=== PATIENT | female | born 1935 | race Caucasian/White ===

== ENCOUNTER 2019-11-27 10:20 | Emergency (ER) | payer MEDICARE, OTHER ==
[~2019-11-27] VITALS: Ht 147.3 cm; Wt 41.3 kg
--- NOTE | 2019-11-27 10:40 | NUR ---
pt brought in by daughter from MD office for evaluation d/t having anxiety. Pt placed in Bed 1, gowned. Pt in no acute distress, follows commands. Initially refused to be placed in Bed but once daughter came to bedside she agreed to be placed in bed. Pt seen and examined by Dr. Velázquez. Addendum: 11/27/19 at 1344 by ELIZABETH Error pt placed in Bed 2a.
[2019-11-27] MEDS ORDERED: LORAZEPAM 2 MG/1 ML VIAL IV ONE (11:00)
[2019-11-27 11:06] LABS: *BLOOD, URINE NEGATIVE (NEGATIVE); *CLARITY,URINE SLIGHTLY CLOUDY (CLEAR); *COLOR,URINE YELLOW (YELLOW); *KETONES,URINE 1+ (NEGATIVE); *UROBILINOGEN,URINE 0.2 E.U./dl (NORMAL); LEUKOCYTE ESTERASE ,URINE NEGATIVE (NEGATIVE); NITRITE, URINE NEGATIVE (NEGATIVE); UGLUCOSE NEGATIVE (NEGATIVE)
[2019-11-27 11:10] LABS: *BILIRUBIN,URIN 1+ (NEGATIVE)
[2019-11-27] MEDS ORDERED: LORAZEPAM 2 MG/1 ML VIAL ONE (11:11)
[2019-11-27 11:16] LABS: *AMPHETAMINE, URINE NEGATIVE (NEGATIVE); *CANNABINOID, URINE NEGATIVE (NEGATIVE); *COCCAINE, URINE NEGATIVE (NEGATIVE); *OPIATE, URINE NEGATIVE (NEGATIVE); *PHENCYCLIDINE SCREEN,URINE NEGATIVE (NEGATIVE)
[2019-11-27 11:21] LABS: BASOPHILS # (AUTO) 0.1 K/uL (0.0-8.0); BASOPHILS % (AUTO) 0.6 % (0.0-2.0); EOSINOPHILS # (AUTO) 0.1 K/uL (0.0-0.7); EOSINOPHILS % (AUTO) 0.8 % (0.0-7.0); HEMATOCRIT 38.7 % (31.2-41.9); HEMOGLOBIN 12.7 g/dL (10.9-14.3); LYMPHOCYTES # (AUTO) 2.1 K/uL (20.0-40.0); LYMPHOCYTES % (AUTO) 18.8 % (20.5-51.5); MEAN CORPUSCULAR HEMOGLOBIN 28.5 uug (24.7-32.8); MEAN CORPUSCULAR HGB CONC 33 g/dL (32.3-35.6); MEAN CORPUSCULAR VOLUME 86.9 fL (75.5-95.3); MONOCYTES % (AUTO) 9.2 % (0.0-11.0); NEUTROPHILS # (AUTO) 7.9 K/uL (1.8-8.9); NEUTROPHILS % (AUTO) 70.6 % (38.5-71.5); PLATELET COUNT (AUTO) 303 K/uL (179-408); RED BLOOD CELL COUNT(AUTO) 4.46 MIL/uL (3.63-4.92); WHITE BLOOD COUNT (AUTO) 11.1 K/uL (3.8-11.8)
[2019-11-27 11:22] LABS: CARBON DIOXIDE 28 mmol/L (21-32); CHLORIDE 107 mmol/L (98-107); CREATININE 1.1 mg/dL (0.6-1.3); GLUCOSE 116 mg/dL (74-106); POTASSIUM 3.9 mmol/L (3.5-5.1); UREA NITROGEN, BLOOD 29 mg/dL (7-18)
[2019-11-27 11:28] LABS: ALANINE AMINOTRANSFERASE 8 U/L (14-59); ALKALINE PHOSPHATASE 68 U/L (50-136); ASPARTATE AMINOTRANSFERASE 22 U/L (15-37); BILIRUBIN,DIRECT 0.1 mg/dL (0.0-0.2); BILIRUBIN,TOTAL 0.3 mg/dL (0.2-1.0); TOTAL PROTEIN, SERUM 6.6 g/dL (6.4-8.2)
--- NOTE | 2019-11-27 11:31 | NUR ---
pt returned from CT placed back on monitor
[2019-11-27 11:32] LABS: ETHANOL < 3 MG/DL (0-0)
[2019-11-27 11:36] LABS: THYROID STIMULATING HORMONE 0.566 mIU/mL (0.358-3.740)
[2019-11-27] MEDS ORDERED: LOVA20TA2 PO (11:51)
[2019-11-27] MEDS ORDERED: LORA-258 PO (11:51)
[2019-11-27] MEDS ORDERED: AMLO5TAB9 PO (11:51)
[2019-11-27] MEDS ORDERED: MIRT30TA7 PO (11:51)
[2019-11-27] MEDS ORDERED: TRIH2TAB5 PO (11:51)
[2019-11-27] MEDS ORDERED: AMIT10TA6 PO (11:51)
[2019-11-27] MEDS ORDERED: CARB-93 PO ×2 (11:51)
[2019-11-27] MEDS ORDERED: FAMO-132 PO (11:51)
[2019-11-27] MEDS ORDERED: levETIRAcetam IV 500 MG in IV DEXTROSE 5% 100 ML IV ONE (12:00)
[2019-11-27] MEDS ORDERED: levETIRAcetam 500 MG/5 ML VIAL IV ONE (12:20)
[2019-11-27] MEDS ORDERED: ACETAMINOPHEN ES 500 MG TABLET ONE (12:54)
[2019-11-27] MEDS ORDERED: ACETAMINOPHEN ES 500 MG TABLET PO ONE (13:00)
--- NOTE | 2019-11-27 14:05 | NUR ---
Per Dr. Velázquez pt is medically clear and Dr. Velázquez called Betty, crisis fresh food manager to evaluate patient. Betty at bedside speaking with patient
[2019-11-27] MEDS ORDERED: MORPHINE SULFATE 2 MG/1 ML DISP.SYRIN IV ONE ×2 (14:15→17:00)
[2019-11-27] MEDS ORDERED: ONDANSETRON 4 MG/2 ML VIAL IV ONE ×2 (14:15→17:00)
[2019-11-27] MEDS ORDERED: ONDANSETRON 4 MG/2 ML VIAL ONE ×2 (14:15→17:00)
[2019-11-27] MEDS ORDERED: MORPHINE SULFATE 2 MG/1 ML DISP.SYRIN ONE ×2 (14:16→17:00)
--- NOTE | 2019-11-27 14:47 | NUR ---
Per Tana, pt is going to [facility] and catalytic case operator will arrange.
--- NOTE | 2019-11-27 14:50 | NUR ---
spoke with Ivania MULLIGAN stated as soon as covid swab results arrive she will arrange transporation. Ivania's phone number is [phone]
[2019-11-27 14:55] LABS: BACTERIA,URINE FEW /HPF (NONE SEEN); MUCUS,URINE FEW /LPF (0-FEW); SQUAMOUS EPITHELIAL CELL,UR FEW /HPF (NONE SEEN)
--- NOTE | 2019-11-27 17:52 | NUR ---
report given to Rambo MORRISON at [facility].
--- NOTE | 2019-11-27 18:17 | NUR ---
Per Dr. Velázquez pt stable for DC to SNF. 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 Documents provided to ambulance. IV dc'd noted with tip intact. Left ER in stable condition.
== END 2019-11-27 18:17 ==
LOC: ER 10:20
DX: F41.9 Anxiety disorder, unspecified (principal); G20 Parkinson's disease; F02.81 Dementia in other diseases classified elsewhere, unspecified severity, with behavioral disturbance; Z91.83 Wandering in diseases classified elsewhere; R11.0 Nausea; Z79.899 Other long term (current) drug therapy; D32.9 Benign neoplasm of meninges, unspecified; G93.5 Compression of brain; N28.1 Cyst of kidney, acquired; K80.20 Calculus of gallbladder without cholecystitis without obstruction; M47.816 Spondylosis without myelopathy or radiculopathy, lumbar region; D17.23 Benign lipomatous neoplasm of skin and subcutaneous tissue of right leg; I31.3 Pericardial effusion (noninflammatory); J98.11 Atelectasis; K44.9 Diaphragmatic hernia without obstruction or gangrene; Z20.828 Contact with and (suspected) exposure to other viral communicable diseases
CPT/HCPCS: 36415; 70450; 71045; 73502; 74176; 80048; 80076; 80307; 80320; 81001; 84443; 84484; 85025; 85730; 87086; 87426; 93005; 96374; 96375; 96376; 99285; J1953; J2060; J2270 ×2; J2405 ×2; J7060 ×2; 70030-TC; A9150; G0480